=== PATIENT | male | born 1990 | race Caucasian/White ===

== ENCOUNTER 2023-07-06 12:14 | Emergency (ER) | payer SELFPAY ==
[2023-07-06 12:29] VITALS: BP 139/80; PULSE 90; TEMP 36.7; O2SAT 98; BMI 30.6
--- NOTE | 2023-07-06 12:52 | XR_ITS ---
The [address] [address] Patient Name: HECTOR CLINE MRN: [id number] date: 1990 Sex: M Assigned Patient Location: ER Current Patient Location: ER Accession/Order Number: [id number] Exam Date: 07/06/2023 13:40 Report Date: 07/06/2023 14:23 At the request of: JAZMINE LEDEZMA Procedure: XR chest 2V EXAM: Chest x-ray HISTORY: . left side rib pain . COMPARISON: None. TECHNIQUE: Frontal and lateral chest. FINDINGS: Heart and vascularity are unremarkable. Lungs are free of focal infiltrates. No bony abnormality is appreciated. XR/XR chest 2V Impression: No acute heart or lung disease identified. Electronically authenticated by: JUAN M SUTTON Date: 07/06/2023 14:23
--- NOTE | 2023-07-06 13:00 | ECG_ITS ---
The [facility] Test Date: 2023-07-06 Pat Name: HECTOR CLINE Department: Room: - Gender: Male Primary Care Nurse Practitioner: : 1990 Requested By: Order Number: [id number] Reading MD: AZALIA DAVILA Measurements Intervals [place] Rate: 81 P: 56 DE: 164 QRS: 90 QRSD: 92 T: 12 QT: 358 QTc: 395 Interpretive Statements 1100 Sinus rhythm 2440 Incomplete right bundle branch block 9130 borderline ECG No previous ECG available for comparison Electronically Signed On 07-07-2023 7:25:52 EDT by AZALIA DAVILA
[2023-07-06] MEDS: KETOROLAC TROMETHAMINE 30 MG/ML VIAL IM (13:31)
--- NOTE | 2023-07-06 14:51 | ED.CHESTPAI1 ---
HPI - Chest Pain General Chief Complaint: Chest Pain Stated Complaint: LEFT SIDE PAIN Time Seen by Provider: 07/06/23 12:54 Source: patient Mode of arrival: walk-in History of Present Illness HPI narrative: The patient coming to the ER with almost 1 week history of chest wall pain in the left side he mentioned that the pain is not associated with any nausea or vomiting he also denies any coughing or phlegm production. Mentioned that the pain started a week ago with no exacerbating factor. He has not been having any fever or chills , left-sided chest wall pain comes whenever he take a deep breath or moves trying to sit up usually cause him pain and also sleeping on that side. The patient denies any dizziness, patient did not take anything for the pain Related Data Previous Rx's ?Medication ?Instructions ?Recorded ibuprofen 600 mg tablet 600 mg PO TID #7 tabs 07/06/23 Allergies Allergy/AdvReac Type Severity Reaction Status Date / Time No Known Drug Allergies Allergy Verified 07/06/23 12:33 Review of Systems ROS Status of ROS 10 or more systems reviewed and unremarkable except as noted in history and below Exam Narrative Exam Narrative: Nurses notes and vital signs reviewed and patient is not hypoxic. General: Well-appearing and in no apparent distress. Skin: Warm, dry, no pallor noted. No rash. Head: Normocephalic, atraumatic. Neck: Supple, non-tender. Eye: Pupils are equal, round and EOMI. No scleral icterus. Ears, Nose, Mouth, and Throat: TM are clear, no nasal mucosal hypertrophy. Oral mucosa is moist, no posterior oropharynx erythema, uvula is mid-line Cardiovascular: Regular Rate and Rhythm without murmur, gallop or rub. Respiratory: No accessory muscle use or respiratory distress. Lungs are clear to auscultation, no wheezing, rales or rhonchi Chest Wall: The patient have chest wall tenderness on the left side and the pain is exacerbated by sitting up Back: No midline thoracic or lumbar vertebral tenderness. No CVA tenderness Musculoskeletal: normal ROM, no calf or popliteal tenderness, no lower extremity edema/swelling GI: Abdomen is soft, non-distended. Normal bowel sounds. No masses appreciated. No tenderness to palpation. No rebound, guarding, or rigidity noted. Neurological: A&O x4. No cranial nerve dysfunction observed. No truncal ataxia. Moves all extremities. Sensation intact. Psychiatric: Cooperative and interactive. Normal mood and affect. Constitutional Vital Signs, click to edit/add: Last Vital Signs Temp 98.0 F 07/06/23 12:29 Pulse 90 07/06/23 12:29 Resp 18 07/06/23 12:29 BP 139/80 07/06/23 12:29 Pulse Ox 98 07/06/23 12:29 O2 Del Method Room Air 07/06/23 12:29 Course Vital Signs Vital signs: Vital Signs Temperature 98.0 F 07/06/23 12:29 Pulse Rate 90 07/06/23 12:29 Respiratory Rate 18 07/06/23 12:29 Blood Pressure 139/80 07/06/23 12:29 Pulse Oximetry 98 07/06/23 12:29 Oxygen Delivery Method Room Air 07/06/23 12:29 Temperature 98.0 F 07/06/23 12:29 Pulse Rate 90 07/06/23 12:29 Respiratory Rate 18 07/06/23 12:29 Blood Pressure 139/80 07/06/23 12:29 Pulse Oximetry 98 07/06/23 12:29 Oxygen Delivery Method Room Air 07/06/23 12:29 MDM - Chest Pain MDM Narrative Medical decision making narrative: The patient presenting to us with chest wall tenderness that has been going on at least for 5 to 7 days during which he did not use any udry-nsp-unoawaj medication. The patient have no difficulty breathing but he have chest pain and the pain gets worse whenever he take a deep breath or moves which is mostly secondary pleuritic or Musculoskeletal:. EKG showing sinus rhythm with a heart rate of [address] elevation or depression The patient x-ray of the chest showed no acute pathology as well Patient is feeling better after being treated with Toradol he was discharged home with a course of anti-inflammatory mostly ibuprofen for the next 2 days The patient is to follow up with primary care physician in next 2-3 days or to return to the emergency department should any of the signs or symptoms worsen or new symptoms develop. The patient agrees with the following Diagnosis and Treatment plan and the patient will be discharged home. Discharge Plan Discharge Stand Alone Forms: Portal Instructions Chief Complaint: Chest Pain Clinical Impression: Acute chest wall pain Patient Disposition: Home, Self-Care Time of Disposition Decision: 14:52 Condition: Good Prescriptions / Home Meds: New ibuprofen 600 mg tablet 600 mg PO TID Qty: 7 0RF Print Language: Cypriot Instructions: Chest Wall Pain (ED) Referrals: Physician,Non-Staff, MD [Primary Care Provider] - 1 week
== END 2023-07-06 14:59 | disposition home or self-care (01) ==
PROVIDERS: Emergency Provider Emergency Medicine
DX: R07.89 Other chest pain (principal)
CPT/HCPCS: 71046; 93005; 96372; 99285

== ENCOUNTER 2024-06-18 07:35 | Emergency (ER) | payer SELFPAY ==
[2024-06-18 07:41] VITALS: BP 132/40; PULSE 68; TEMP 36.9; O2SAT 100; O2SAT 98; BMI 30.7
[2024-06-18 07:42] VITALS: BP 132/40; O2SAT 99
[2024-06-18 07:45] VITALS: BP 122/74; PULSE 61; O2SAT 99
--- NOTE | 2024-06-18 07:53 | XR_ITS ---
The [place] [id number] Patient Name: HECTOR CLINE MRN: [id number] date: 1990 Sex: M Assigned Patient Location: ER Current Patient Location: ED.MAIN Accession/Order Number: [id number] Exam Date: 06/18/2024 08:44 Report Date: 06/18/2024 08:45 At the request of: GILLIAN COLINDRES MD Procedure: XR chest 1V PORTABLE AP ERECT CHEST 0816 hours CLINICAL HISTORY: Chest pain today COMPARISON: 07/06/2023 The heart is within normal limits. There is no vascular congestion. The lungs, as visualized, are clear. There is no effusion or pneumothorax. The osseous structures are intact. XR/XR chest 1V IMPRESSION: NO ACUTE FINDINGS Impression dictated by: Tania Cordova M.D.06/18/2024 8:45 AM Dictation Location: [place] [address] Electronically authenticated by: [id number] Y Date: 06/18/2024 08:45
--- NOTE | 2024-06-18 07:53 | ECG_ITS ---
The [facility] Test Date: 2024-06-18 Pat Name: HECTOR CLINE Department: Room: - Gender: Male [employer] Fe[employer]: : 1990 Requested By: [id number] Order Number: [id number] Reading MD: MINO FONSECA M.D. Measurements Intervals [place] Rate: 61 P: 40 CA: 170 QRS: 79 QRSD: 100 T: 21 QT: 408 QTc: 410 Interpretive Statements 1100 Sinus rhythm 2440 Incomplete right bundle branch block 9130 borderline ECG Compared to ECG 07/06/2023 13:04:30 No significant changes Electronically Signed On 06-18-2024 20:25:22 EDT by MINO FONSECA M.D.
--- NOTE | 2024-06-18 07:53 | ED.GENADUL1 ---
HPI HPI - General Adult General Chief complaint: Chest Pain Stated complaint: chest pain Time Seen by Provider: 06/18/24 07:50 Source: patient Mode of arrival: walk-in History of Present Illness HPI narrative: 33-year-old male presents to the emergency department for chest pain. He points to the lower part of the sternum and has been there since 4:30 AM, over 3 hours. He was at work when it started but there was no injury. He had not eaten anything. No vomiting or diarrhea. No fever or cough or shortness of breath. Related Data Home Medications ?Medication ?Instructions ?Recorded ?Confirmed No Known Home Medications 06/18/24 06/18/24 Allergies Allergy/AdvReac Type Severity Reaction Status Date / Time No Known Drug Allergies Allergy Verified 06/18/24 07:40 Opioid HPI Opioid Management Most Recent Opioid Data: Last Pain Scale 8 07/06/23 13:31 07/06/23 Review of Systems ROS Narrative A ten point review of systems is negative except as noted above. [facility] Medical History (Updated 06/18/24 @ 09:16 by Juan Canela MD) Asthma ?J45.909 - Unspecified asthma, uncomplicated (ICD-10) Social History Little interest or pleasure in doing things: not at all Feeling down, depressed, or hopeless: not at all Exam Narrative Exam Narrative: Nurses note and vital signs reviewed and patient is not hypoxic. General: The patient appears well and in no apparent distress. Patient is resting comfortably on cart. Skin: Warm, dry, no pallor noted. There is no rash noted. Head: Normocephalic, atraumatic Eye: Normal conjunctiva, no drainage Ears, Nose, Mouth, and Throat: oral mucosa is moist. Nares patent. Cardiovascular: Regular Rate and Rhythm. Chest wall not tender. No bruise or rash Respiratory: Patient is in no distress, no accessory muscle use, lungs are clear to auscultation, no wheezing, rales or rhonchi Back: non-tender GI: Soft and nontender. No tenderness in the epigastric area Musculoskeletal: The patient has no evidence of calf tenderness, no pitting edema, symmetrical pulses noted bilaterally Neurological: A&O, normal speech Psychiatric: Cooperative Constitutional Vital Signs, click to edit/add: Last Vital Signs Temp 98.4 F 06/18/24 07:41 Pulse 54 L 06/18/24 08:45 Resp 20 06/18/24 08:45 BP 104/72 06/18/24 08:45 Pulse Ox 98 06/18/24 08:45 O2 Del Method Room Air 06/18/24 08:45 Course Vital Signs Vital signs: Vital Signs Temperature 98.4 F 06/18/24 07:41 Pulse Rate 68 06/18/24 07:41 Respiratory Rate 20 06/18/24 07:41 Blood Pressure 132/40 L 06/18/24 07:41 Pulse Oximetry 98 06/18/24 07:41 Oxygen Delivery Method Room Air 06/18/24 07:41 Temperature 98.4 F 06/18/24 07:41 Pulse Rate 54 L 06/18/24 08:45 Respiratory Rate 20 06/18/24 08:45 Blood Pressure 104/72 06/18/24 08:45 Pulse Oximetry 98 06/18/24 08:45 Oxygen Delivery Method Room Air 06/18/24 08:45 Medical Decision Making MDM Narrative Medical decision making narrative: His workup including troponin level is normal. He seems to be feeling improved with GI cocktail and is able to be discharged home. At this point I do not suspect acute coronary syndrome. Treatment diagnosis and follow-up were discussed with the patient. Differential Diagnosis Differential Diagnosis: Chest pain, acute coronary syndrome, muscle strain, GE reflux Lab Data Lab results reviewed: Yes I reviewed the patient's lab results Labs: Lab Results 06/18/24 Range/Units 08:05 WBC 8.2 (4.0-11.0) 10^3/uL RBC 4.72 (4.70-6.10) 10^6/uL Hgb 14.5 (14.0-18.0) g/dL Hct 40.9 L (42.0-54.0) % MCV 86.7 (80.0-94.0) fL MCH 30.7 (25.9-34.0) pg MCHC 35.5 H (29.9-35.2) g/dL RDW 12.4 (11.0-15.0) % Plt Count 290 (150-450) 10^3/uL MPV 10.0 (9.5-13.5) fL Neut % (Auto) 52.6 (43.0-75.0) % Lymph % (Auto) 32.8 (20.5-60.0) % Keith % (Auto) 9.8 (1.7-12.0) % Eos % (Auto) 3.5 (0.9-7.0) % Baso % (Auto) 0.7 (0.2-2.0) % Neut # (Auto) 4.3 (1.4-6.5) 10^3/uL Lymph # (Auto) 2.7 (1.2-3.8) 10^3/uL Keith # (Auto) 0.8 (0.3-0.8) 10^3/uL Eos # (Auto) 0.3 (0.0-0.7) 10^3/uL Baso # (Auto) 0.1 (0.0-0.1) 10^3/uL Abs Immat Gran (auto) 0.05 H (0.00-0.03) 10^3/uL Imm/Tot Granulo (auto) 0.6 H (0.0-0.5) % Sodium 139 (136-145) mmol/L Potassium 3.4 L (3.5-5.1) mmol/L Chloride 102 (98-107) mmol/L Carbon Dioxide 28.5 (21.0-32.0) mmol/L Anion Gap 11.9 BUN 10.0 (7.0-18.0) mg/dL Creatinine 1.16 (0.70-1.30) mg/dL Est GFR ( Amer) >60 (>=60 mL/min/1.73m^2) Est GFR (Non-Af Amer) >60 (>=60 mL/min/1.73m^2) BUN/Creatinine Ratio 8.6 Glucose 96 (74-106) mg/dL Calcium 9.2 (8.5-10.1) mg/dL Troponin I High Sens 4.5 (4.0-76.1) pg/mL Imaging Data Chest x-ray: Radiologist's impression: ITS Impressions Chest X-Ray 06/18/24 07:53 IMPRESSION: NO ACUTE FINDINGS Impression dictated by: Tania Cordova M.D.06/18/2024 8:45 AM Dictation Location: [place] [address] Electronically authenticated by: [id number] Y Date: 06/18/2024 08:45 ECG Data Attestation: I personally reviewed and interpreted this ECG as follows: (EKG on my interpretation shows normal sinus rhythm with a rate of 61 and no acute change) Discharge Plan Discharge Chief Complaint: Chest Pain Clinical Impression: Chest pain Patient Disposition: Home, Self-Care Time of Disposition Decision: 09:16 Condition: Good Mode of Transportation: Private Vehicle Prescriptions / Home Meds: No Action No Known Home Medications Print Language: Turkmen Instructions: Chest Pain (ED) Referrals: Physician,Non-Staff, MD [Primary Care Provider] - 1 week
[2024-06-18 08:14] LABS: Basophils Absolute Auto 0.1 10^3/uL (0.0-0.1); Basophils Percent Auto 0.7 % (0.2-2.0); Eosinophils Absolute Auto 0.3 10^3/uL (0.0-0.7); Eosinophils Percent Auto 3.5 % (0.9-7.0); Hematocrit 40.9 % (42.0-54.0); Hemoglobin 14.5 g/dL (14.0-18.0); Immature Granulocytes Abs Auto 0.05 10^3/uL (0.00-0.03); Immature Granulocytes Pct Auto 0.6 % (0.0-0.5); Lymphocytes Absolute Auto 2.7 10^3/uL (1.2-3.8); Lymphocytes Percent Auto 32.8 % (20.5-60.0); Mean Corpuscular HGB Conc 35.5 g/dL (29.9-35.2); Mean Corpuscular Hemoglobin 30.7 pg (25.9-34.0); Mean Corpuscular Volume 86.7 fL (80.0-94.0); Monocytes Absolute Auto 0.8 10^3/uL (0.3-0.8); Monocytes Percent Auto 9.8 % (1.7-12.0); Neutrophils Absolute Auto 4.3 10^3/uL (1.4-6.5); Neutrophils Percent Auto 52.6 % (43.0-75.0); Platelet Count 290 10^3/uL (150-450); Red Blood Count 4.72 10^6/uL (4.70-6.10); Red Cell Distribution Width 12.4 % (11.0-15.0); White Blood Count 8.2 10^3/uL (4.0-11.0)
[2024-06-18 08:31] LABS: Anion Gap 11.9; BUN Creatinine Ratio 8.6; Calcium 9.2 mg/dL (8.5-10.1); Carbon Dioxide 28.5 mmol/L (21.0-32.0); Chloride 102 mmol/L (98-107); Estimated GFR (African America >60 (>=60 mL/min/1.73m^2); Estimated GFR (Non-African Ame >60 (>=60 mL/min/1.73m^2); Glucose 96 mg/dL (74-106); Potassium 3.4 mmol/L (3.5-5.1); Sodium 139 mmol/L (136-145); Troponin I High Sensitivity 4.5 pg/mL (4.0-76.1)
[2024-06-18] MEDS: lidocaine HCL 15 ML, MAG HYDROX/ALUMINUM HYD/SIMETH 30 ML, HYOSCYAMINE SULFATE 0.25 MG PO (08:44)
[2024-06-18 08:45] VITALS: BP 104/72; PULSE 54; O2SAT 98
== END 2024-06-18 09:24 | disposition home or self-care (01) ==
PROVIDERS: Emergency Provider Emergency Medicine
DX: R07.9 Chest pain, unspecified (principal)
CPT/HCPCS: 36415; 71045; 80048; 84484; 85025; 93005; 99285